=== PATIENT | male | born 2000 | race Caucasian/White ===

== ENCOUNTER 2023-11-25 12:13 | Emergency (ER) | payer SELFPAY | END 2023-11-25 12:39 | disposition home or self-care (01) | LOC: MW.ED 12:13 → MERGE 12:13 → MW.ED 12:39 | DX: K04.7 Periapical abscess without sinus (principal); Z86.16 Personal history of COVID-19; Z79.899 Other long term (current) drug therapy | CPT/HCPCS: 99283 ==